=== PATIENT | female | born 1995 | race Caucasian/White ===

== ENCOUNTER 2016-11-20 14:03 | Emergency (ER) | payer MEDICAID ==
[~2016-11-20] VITALS: Ht 160 cm; Wt 47.2 kg
[2016-11-20 14:06] VITALS: BP 91/65
== END 2016-11-20 14:42 | disposition home or self-care (01) ==
LOC: ED 14:40
DX: Z76.0 Encounter for issue of repeat prescription (principal); F41.1 Generalized anxiety disorder
CPT/HCPCS: 99283